=== PATIENT | female | born 1980 | race Caucasian/White ===

== ENCOUNTER 2019-01-29 02:36 | Emergency (ER) | payer SELFPAY ==
[2019-01-29] MEDS ORDERED: Ketorolac Tromethamine 30 MG/ML VIAL ONE (02:59)
[2019-01-29] MEDS ORDERED: Ondansetron ODT 4 MG TAB ONE (02:59)
[2019-01-29 03:06] LABS: Bilirubin Negative (Negative); Blood, Urine Negative (Negative); Clarity Clear (Clear); Glucose, Urine (Dipstick) Normal (Negative); Leukocyte Negative Leu/uL (Negative); Nitrite Negative (Negative); Protein, Urine (Dipstick) Negative (Neg-Trace); Urobilinogen Normal mg/dL (Less than 2)
[2019-01-29 03:23] LABS: #Basophils 0.1 thou/uL (0.0-0.2); #Eosinphils 0.2 thou/uL (0.0-0.7); #Lymphocytes 1.8 thou/uL (1.20-3.40); #Monocytes 0.7 thou/uL (0.11-0.59); #Neutrophils 4.3 thou/uL (1.40-6.50); %Basophils 0.8 % (0.0-1.0); %Eosinophils 2.4 % (0.0-10.0); %Lymphocytes 25.5 % (21.0-51.0); %Monocytes 10.1 % (0.0-10.0); %Neutrophils 61.2 % (42.0-75.0); Hemoglobin 13.5 g/dL (12.0-16.0); Mean Corpuscular HGB CONC 33.7 g/dL (32.0-36.0); Mean Corpuscular Hemoglobin 30.6 pg (27.0-31.0); Mean Corpuscular Volume 90.8 fL (78.0-98.0); Mean Platelet Volume 9.2 fL (7.4-10.4); Platelet Count 214 thou/uL (130-400); RBC Distribution Width 12.4 % (11.5-14.5); Red Blood Cell (RBC) Count 4.42 mill/uL (4.20-5.40); White Blood Cell (WBC) Count 7.1 thou/uL (4.8-10.8)
[2019-01-29 03:27] LABS: BHCG - Serum Negative (NEGATIVE); Pregs Control Background? CLEAR/WHITE (CLR/WHITE); Pregs Control Bar Appear? YES (CONTROL BAR)
[2019-01-29 03:42] LABS: ALT (SGPT) 13 U/L (8-55); AST (SGOT) 13 U/L (5-34); Alkaline Phosphatase 83 U/L (40-110); Anion Gap 12 mmol/L (10-20); BUN (Urea Nitrogen) 8 mg/dL (7.0-18.7); Bilirubin, Total 0.5 mg/dL (0.2-1.2); Calc. Creatinine Clearance 0 mL/min (70-130); Calcium 9.2 mg/dL (7.8-10.44); Carbon Dioxide 24 mmol/L (22-29); Chloride 107 mmol/L (98-107); Estimated GFR-MDRD 90; Globulin 2.2 g/dL (2.4-3.5); Glucose 98 mg/dL (70-105); Potassium 3.7 mmol/L (3.5-5.1); Protein, Total 6.2 g/dL (6.0-8.3); Sodium 139 mmol/L (136-145)
--- NOTE | 2019-01-29 08:52 | CT ---
PRELIMINARY REPORT/[facility]/EMERGENCY AFTER HOURS PROCEDURE: PROCEDURE INFORMATION: Exam: CT Abdomen And Pelvis Without Contrast Exam date and time: 01/29/2019 3:55 AM Clinical history: 39 years old, female; Abdominal pain; Patient HX: Er 7. F40 with pmh of kidney ston es presented to the ED with a C/O lower abd pain and bilateral flank pain x 3 days. PT reports nausea and vomiting onset x1 hour ago. PT reports the pain is more on the left side, but it hurts so much that it feels like it's everywhere. PT reports the pain feel like a kidney stone. PT reports the pain is crampy in nature. PT reports pain with urination a couple hours ago. PT denies blood in urin e TECHNIQUE: Imaging protocol: Computed tomography of the abdomen and pelvis without contrast. COMPARISON: No relevant prior studies available. FINDINGS: Lungs: Partially visualized 5 mm noncalcified nodule within the periphery of the right lower lobe (se eliel 2, image 1). 4 mm noncalcified nodule within the periphery of the left lower lobe (series 2, kelton ge 5). Calcified granuloma within the posterior left lower lobe. Mediastinum: Small-sized hiatal hernia. Liver: Normal. Gallbladder and bile ducts: Normal Pancreas: Normal. Spleen: Normal. Adrenals: Normal. Kidneys and ureters: Normal. Stomach and bowel: Moderate amount of stool throughout the colon, suggesting constipation. Appendix: Appendix normal. Intraperitoneal space: Small amount of pelvic free fluid, likely physiologic. Vasculature: Phleboliths in the pelvis. Lymph nodes: Unremarkable. No enlarged lymph nodes. Bladder: Unremarkable as visualized. Reproductive: Unremarkable as visualized. Bones/joints: No acute abnormality. Soft tissues: Normal. IMPRESSION: Moderate amount of stool throughout the colon, suggesting constipation. No obstruction. Thank you for allowing us to participate in the care of your patient. Dictated and Authenticated by: Waqar Singh MD 01/29/2019 4:17 AM Central Time ([place] & [place]) FINAL REPORT CT ABDOMEN WITHOUT CONTRAST CT PELVIS WITHOUT CONTRAST HISTORY: Lower abdominal pain. Bilateral flank pain x 3 days. FINDINGS: This report is in agreement with the preliminary report by [facility]. Noncalcified lung parenchymal nodule s. No evidence of obstructive uropathy. Scattered fecal material. Correlate clinically for constip ation. Normal caliber appendix. POS: [facility]
== END 2019-01-29 04:50 ==
LOC: ERS 02:36
DX: K59.00 Constipation, unspecified (principal); R11.2 Nausea with vomiting, unspecified; F17.210 Nicotine dependence, cigarettes, uncomplicated; Z87.442 Personal history of urinary calculi
CPT/HCPCS: 36415; 74176; 80053; 81003; 84703; 85025; 96372; J1885; Q0162